=== PATIENT | female | born 2000 | race Caucasian/White ===

== ENCOUNTER 2019-03-06 12:52 | Outpatient (RCR) | payer OTHER, SELFPAY ==
--- NOTE | 2019-03-11 09:48 | HP.PTEVAL_ITS ---
Patient's Visit Information ELMO MARTIN is a 18 year old F referred to Physical Therapy by CHOCO BAUTISTA with a diagnosis of R quad strain. Date of Evaluation: 03/06/19 Physical Therapist: Bertin Fiore DPT - Visit Plan Frequency: 1-2x /Week Duration: 4 Weeks Plan: Start with light quad stretching, manual to quad, DN to rectus femoris and sartorius. Progress HEP as tolerated. - Subjective Findings: Pt is here today for her initial evaluation with diagnosis of R quad strain. Pt. reports initial injuring it approximately 3 weeks ago playing soccer. She reports she was slowly getting better, but then suffered a quad contusion last week. Pt. reports having increased pain with shooting, but is able to run and complete most soccer activities without limitaitons. Pt. has continued to play in her games, but with reservation. 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 Pt. is hopeful to reduce symptoms in order to get back to all recreational activities inlcuding playing soccer without limitations. - Pain R quad Pain Intensity (Out of 10): 1 Pain Intensity Range: 0, 5 - Objective POSTURE: Pt. has normal posture in stance. PALPATION: Pt. has mild tenderness along medial muscle belly of rectus femoris, but has greatest soreness along sartorius. NEURO: normal throughout. ROM: PT. has good ROM of R hip and knee, but does have mild increase in soreness with quad stretching, normal HS length. MMT: full throughout RLE with mild increase in symptoms with rectus and sartoriu s testing. GAIT/running: normal throuhgout without increase in symptoms. - Goals Goal 1:: Pt. to be I with HEP. Goal Time Frame: 4-6 Weeks Goal 2:: Pt. to have no pain with running. Goal Time Frame: 4-6 Weeks Goal 3:: Pt. to have increased quad length without increase in symptoms. Goal Time Frame: 4-6 Weeks Goal 4:: Pt. to complete a soccer game without increase in symptoms. Goal Time Frame: 4-6 Weeks Goal 5:: Pt. to be able to strike/shoot during soccer game without increase in symptoms. Goal Time Frame: 4-6 Weeks - Rehabilitation Potential Physical Therapy Diagnosis: Pt. has signs and symptoms consistent with R quad strain. She would benefit from manual techniques, DN and light stretching. PRogressing back to sport as tolerated. Rehabilitation Potential: Excellent - Anticipated Interventions Patient/Client Instruction: Educate patient on: Condition, Plan of Care, Risk Factors, Benefits of Fitness Program For the Purpose of:: To improve health and function, To foster healthy habits, To improve decision making, To improve self management, To prevent re-injury Therapeutic Exercise to Include: Power training, Body mechanics, Postural training, Passive ROM, Active ROM For the Purpose of:: To decrease pain, To decrease swelling/inflammation, To improve nutrient delivery to tissue, To increase oxygenation perfusion, To improve muscle performance and motor function Manual Therapy Techniques to Include: Functional dry needling, Soft tissue mobilization For the Purpose of:: To decrease pain, To increase ROM, To improve nutrient delivery to tissue, To increase oxygenation perfusion, To improve muscle performance and motor function Thank you for the opportunity to evaluate your patient. For Medicare and Medicare HMO plans, please review the plan of care and approve it. It will need to be FAXED BACK to us at [phone] for Medicare purposes. For Medicare only, by signing this I certify the plan of care. Please let me know if there are questions or concerns regarding this plan of care. Physician Signature: Date:
== END 2019-03-06 17:00 | disposition home or self-care (01) ==
LOC: PT 12:52
DX: S76.111D Strain of right quadriceps muscle, fascia and tendon, subsequent encounter (principal)
CPT/HCPCS: 97161

== ENCOUNTER 2020-08-13 18:46 | Emergency (ER) | payer OTHER, SELFPAY ==
[2020-08-13] VITALS (7 sets, daily range): BP systolic 104–135; BP diastolic 68–90; PULSE 70–97; RESP 14–24; TEMP 36.8; O2SAT 97–100; BMI 23.5
--- NOTE | 2020-08-13 19:09 | ED.DCSUM_ITS ---
- ER Visit Summary Date of Service: 08/13/20 Chief Complaint: Shoulder injury while playing soccer History of Present Illness: The patient is a 20 F seen past medical history. Prior appendectomy and prior fractured left elbow which would not need surgical repair. She plays soccer for the local college. She went for a ball and fell and landed awkwardly on her left shoulder. This occurred about an hour ago. Denies any other injuries. She did not hit her head. No LOC. She is right- hand dominant. Physical Examination: Appearing young female. Vital signs stable afebrile. Mom at bedside. H EENT exam unremarkable atraumatic. C-spine nontender. Trachea midline. Lungs clear to auscultation bilaterally. Heart regular rhythm no murmur. Chest were nontender. Abdomen soft nontender. Right upper and both lower extremities are nontender normal range of motion. Normal strength and sensation. Left shoulder tender. Appears to be deformed. The distal humerus, elbow, forearm, wrist and hand are nontender. Normal radial pulse. Normal supervisory investigative specialist strength and sensation of the left hand. Left elbow is nontender not swollen. Wrist and elbow have normal range of motion. She is unable to do range of motion of the left shoulder. Back nontender. Neurologically she is awake and alert. No focal motor deficits. Test Results: Left shoulder x-ray interpreted by myself there is an anterior left shoulder dislocation. I went over the films with the patient and her parents. Post reduction a second left shoulder x-ray was done and reduction was successful. No fracture. Good alignment. I went over that film with them also. Emergency Department Course and Treatment: Concern for dislocated shoulder versus fracture versus contusion. X-ray being obtained. Patient was offered but deferred anything for pain at this time. Patient was set up for conscious sedation. O2 and cardiac monitoring. Was given aliquots of 40 to 60 mg of propofol for a total of 250 mg IV. Once conscious sedation was obtained easily the shoulder was reduced using traction countertraction. X-ray confirmed it. She was placed in a sling and swath. She has been observed and is now awake and doing well will be discharged home with her family. Mom and dad were in the room the entire time. Treatment Plan: Swath. Orthopedic follow-up. No driving for the next 24 hours. Disposition: dc Impression: Acute left shoulder anterior dislocation Conscious sedation using propofol for approximately 10 minutes. Left anterior shoulder reduction by ER using traction countertraction This note was generated with [employer] dictation software. It may contain incorrect words, spelling, and punctuation that were not noted in review of the chart prior to signing ED Disposition - Plan for ED Patient: Referrals: [facility] Doctor,Out of [NON-STAFF] -
--- NOTE | 2020-08-13 19:12 | RAD_ITS ---
STUDY: X-RAY - LEFT SHOULDER REASON FOR EXAM: Female, 20 years old. dislocated vs other ?? TECHNIQUE: 2 view(s) of the shoulder. COMPARISON: None. FINDINGS: There is anterior inferior dislocation of the humerus with respect to the glenoid. There is no fracture. Clavicle is normal. AC joint is intact RAD/Shoulder min 2 Views IMPRESSION: Anterior inferior dislocation of the humerus. Electronically Signed: Leticia Mason MD at 19:28 EST Tel , Service support ,
[2020-08-13] MEDS: Propofol 200 MG/20 ML Vial 250 MG IV BOLUS (19:38)
--- NOTE | 2020-08-13 20:25 | RAD_ITS ---
STUDY: X-RAY - LEFT SHOULDER REASON FOR EXAM: Female, 20 years old. Post reduction TECHNIQUE: 2 view(s) of the shoulder. COMPARISON: 08/13/20 at 7:16 PM FINDINGS: The patient is status post reduction of the previously seen left shoulder dislocation. The alignment is satisfactory. There is no fracture identified. There are no radiodense foreign bodies. RAD/Shoulder min 2 Views IMPRESSION: Status post reduction with satisfactory alignment. Electronically Signed: Jeremy Delgado MD at 20:51 EST Tel , Service support ,
--- NOTE | 2020-08-13 20:47 | ED.DEP ---
ED Disposition - Plan for ED Patient: Disposition: Home or Assisted Living Instructions: ED Dislocation: Shoulder (Reduced) Referrals: Jeremy Gillespie MD [STAFF PHYSICIAN] - 1 Week Additional Instructions: Tylenol and/or Motrin for pain. Leave the sling and swath on except when bathing and may remove it if you want at night to sleep. Be very careful not to do significant range of motion of left shoulder because you could re-dislocate it. Follow-up with an orthopedic physician in your choice over the next week.
== END 2020-08-13 21:12 | disposition home or self-care (01) ==
PROVIDERS: Emergency Provider Emergency Medicine
DX: S43.015A Anterior dislocation of left humerus, initial encounter (principal); X50.1XXA Overexertion from prolonged static or awkward postures, initial encounter; Y93.66 Activity, soccer; Y92.9 Unspecified place or not applicable
CPT/HCPCS: 23650; 73030; 99152; 99285; J7030; A4216